=== PATIENT | male | born 1955 | race Hispanic/Latino ===

== ENCOUNTER 2018-02-27 11:37 | Emergency (ER) | payer MEDICARE, OTHER ==
[2018-02-27 11:38] VITALS: BMI 23.8
[2018-02-27 13:40] LABS: BASO # 0.1 K/uL (0.0-0.2); BASO % 1.5 % (0.0-2.0); EOS % 0.3 % (0.0-4.0); HEMOGLOBIN 15.4 g/dL (12.0-18.0); LYMPH # 2.1 K/uL (1.0-4.3); LYMPH % 23.9 % (20.0-40.0); MEAN CELL VOLUME 96.5 fL (80.0-94.0); MEAN CORPUSCULAR HGB CONC 35.3 g/dL (33.0-37.0); MEAN PLATELET VOLUME 8.6 fL (7.2-11.7); MONO # 0.4 K/uL (0.0-0.8); MONO % 4.7 % (0.0-10.0); NEUT % 69.6 % (50.0-75.0); RBC 4.54 Mil/uL (4.40-5.90); RED CELL DISTRIBUTION WIDTH 13.2 % (11.5-14.5); WHITE BLOOD COUNT 8.6 K/uL (4.8-10.8)
--- NOTE | 2018-02-27 13:44 | C.PDOC ---
History Of Present Illness Patient is a 63 y/o male who presents to the ED with a complaint of intermittent weakness in bilateral legs since starting [place] 2 years ago. Patient reports to have trouble standing and notes developing constipation a few months ago. PMD cut back dosage to alleviate constipation, but weakness in legs persist. Admits to being able to walk without assistance. Patient also complains of chronic general body aches, unrelated to lithium. Denies headache, lightheadedness, or dizziness. Patient reports to have appointment with PMD tomorrow. No other physical complaints. Time Seen by Provider: 02/27/18 13:06 Chief Complaint (Nursing): Weakness/Neurological Deficit History Per: Patient History/Exam Limitations: no limitations Onset/Duration Of Symptoms: Days (2 years) Current Symptoms Are (Timing): Still Present Associated Symptoms Preceding Syncopal Episode: No Predromal Symptoms (Sudden Onset). denies: Lightheadedness Seizure Or Post-ictal Symptoms: None Recent travel outside of the [place]: No Past Medical History Reviewed: Historical Data, Nursing Documentation, Vital Signs Vital Signs: Last Vital Signs Temp 98.2 F 02/27/18 14:41 Pulse 52 L 02/27/18 14:41 Resp 20 02/27/18 14:41 BP 113/73 02/27/18 14:41 Pulse Ox 98 02/27/18 15:00 - Medical History PMH: Anxiety, Arthritis (generalized....as per patient), Asthma (as per patient) , Depression, Emphysema (as per patient), Post Traumatic Stress Disorder, Schizophrenia Denies: Diabetes, Hepatitis, HIV, HTN, Chronic Kidney Disease, Seizures, Sexually Transmitted Disease Surgical History: No Surg Hx - [facility] INDIVIDUAL PSYCHOTHERAPY, BEHAVIORAL (12/21/16) Family History: States: No Known Family Hx - Social History Hx Tobacco Use: Yes (heavy smoker) Hx Alcohol Use: Yes (as per patient since age 7) Hx Substance Use: No Review Of Systems Constitutional: Negative for: Fever, Chills Musculoskeletal: Positive for: Other (general body aches) Neurological: Positive for: Weakness (bilateral legs). Negative for: Headache, Dizziness Physical Exam - Physical Exam Appears: Well, Non-toxic, No Acute Distress Skin: Normal Color, Warm, Dry Head: Atraumatic, Normacephalic Oral Mucosa: Moist Chest: Symmetrical Cardiovascular: Rhythm Regular, No Murmur Respiratory: Normal Breath Sounds, No Rales, No Rhonchi, No Wheezing Gastrointestinal/Abdominal: Soft, No Tenderness Extremity: Normal ROM (x4) Neurological/Psych: Oriented x3, Normal Speech, Normal Cognition, Normal Motor ( 5/5 strength in legs), Normal Sensation, Normal Reflexes ED Course And Treatment - Laboratory Results Result Diagrams: 02/27/18 13:34 02/27/18 13:34 Lab Interpretation: Normal ([place] is subtherapeutic) O2 Sat by Pulse Oximetry: 98 Pulse Ox Interpretation: Normal Progress Note: blood work ordered. Disposition Counseled Patient/Family Regarding: Studies Performed, Diagnosis, Need For Followup - Disposition Disposition: HOME/ ROUTINE Disposition Time: 15:00 Condition: STABLE Additional Instructions: Follow up with your psychiatrist tomorrow foe medication adjustment. Instructions: Generalized Weakness (DC), Schizophrenia Forms: [facility] (Brazilian) - Clinical Impression Clinical Impression: Schizophrenia - Scribe Statement The provider has reviewed the documentation as recorded by the Scribe Tori Abel All medical record entries made by the Scribe were at my direction and personally dictated by me. I have reviewed the chart and agree that the record accurately reflects my personal performance of the history, physical exam, medical decision making, and the department course for this patient. I have also personally directed, reviewed, and agree with the discharge instructions and disposition.
[2018-02-27 13:58] LABS: ALB/GLOB RATIO 1.4 (1.0-2.1); ALBUMIN 4.1 g/dL (3.5-5.0); ALT/SGPT 34 U/L (21-72); AST/SGOT 31 U/L (17-59); BLOOD UREA NITROGEN 11 mg/dL (9-20); CALCIUM 9.3 mg/dl (8.6-10.4); GFR AFRICAN-AMERICAN > 60; GFR NON-AFRICAN AMERICAN > 60
[2018-02-27 14:42] VITALS: BP 113/73; PULSE 52; RESP 20; TEMP 98.2
[2018-02-27 15:00] VITALS: O2SAT 98
== END 2018-02-27 15:14 | disposition home or self-care (01) ==
LOC: C.ER 11:37
DX: F20.9 Schizophrenia, unspecified (principal)